=== PATIENT | female | born 1980 | race Caucasian/White ===

== ENCOUNTER 2016-09-30 17:08 | Emergency (ER) | payer OTHER ==
[2016-09-30 17:27] VITALS: BP 122/70; PULSE 72; RESP 18; TEMP 98.6
--- NOTE | 2016-09-30 17:32 | ED ---
General Adult HPI - General Chief complaint: Skin/Abscess/Foreign Body Stated complaint: Needle Stick-[facility] Time Seen by Provider: 09/30/16 17:14 Source: patient, RN notes reviewed Mode of arrival: ambulatory Limitations: no limitations - History of Present Illness Initial comments: Patient is a pleasant 36-year-old female presenting to the emergency Department with needle stick. 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 Patient was injecting anesthesia when she accidentally stuck herself in the left index finger. Tetanus immunization is up-to-date. Patient has been immunized for hepatitis B. No other areas of injury or concern. Patient did clean the wound. - Related Data Home Medications Medication Instructions Recorded Confirmed No Known Home Medications [No 02/04/15 09/30/16 Known Home Medications] Allergies Allergy/AdvReac Type Severity Reaction Status Date / Time No Known Allergies Allergy Verified 09/30/16 17:27 Review of Systems ROS Statement: Those systems with pertinent positive or pertinent negative responses have been documented in the HPI. ROS Other: All systems not noted in ROS Statement are negative. Constitutional: Denies: fever Eyes: Denies: eye pain ENT: Denies: ear pain Respiratory: Denies: dyspnea Cardiovascular: Denies: chest pain Endocrine: Denies: fatigue Gastrointestinal: Denies: vomiting Musculoskeletal: Denies: back pain Skin: Denies: rash Past Medical History Past Medical History: No Reported History History of Any Multi-Drug Resistant Organisms: None Reported Past Surgical History: No Surgical Hx Reported Past Psychological History: No Psychological Hx Reported Smoking Status: Never smoker Past Alcohol Use History: None Reported Past Drug Use History: None Reported General Exam Limitations: no limitations General appearance: alert, in no apparent distress Head exam: Present: atraumatic Eye exam: Present: normal appearance Respiratory exam: Present: normal lung sounds bilaterally Cardiovascular Exam: Present: regular rate, normal rhythm Extremities exam: Present: other (Puncture wound left index finger) Neurological exam: Present: alert Psychiatric exam: Present: normal affect, normal mood Skin exam: Present: other (Left index finger with puncture wound.) Course Vital Signs 09/30/16 17:15 Temperature 98.6 F Pulse Rate 72 Respiratory 18 Rate Blood Pressure 122/70 O2 Sat by Pulse 100 Oximetry Medical Decision Making - Medical Decision Making Source rapid HIV returned as negative. Patient was updated. Disposition Clinical Impression: Needle stick injury of finger Disposition: HOME SELF-CARE Condition: Stable Instructions: Needle Stick Injuries (ED) Additional Instructions: Please follow-up with [facility] this week for results and further testing information. You will need further blood draws for repeat evaluation. Twice daily wash wound with soap and water, apply antibiotic ointment, and bandage. Return for fevers, concerns for wound infection, worsening symptoms or other concerns. Referrals: Kenneth Harrison DO [Primary Care Provider] - 1-2 days Time of Disposition: 18:20
[2016-10-01 15:06] LABS: Hepatitis B Surface Antibody POSITIVE (Negative); Hepatitis C Virus IgG Index 0.02
[2016-10-01 15:07] LABS: Hepatitis C Virus IgG Ab Negative (Negative)
== END 2016-09-30 18:20 | disposition home or self-care (01) ==
LOC: EC 17:08
DX: S61.231A Puncture wound without foreign body of left index finger without damage to nail, initial encounter (principal); W46.0XXA Contact with hypodermic needle, initial encounter; Y99.0 Civilian activity done for income or pay
CPT/HCPCS: 36415; 86706; 86803; 87390; 99283